=== PATIENT | male | born 1965 | race Caucasian/White ===

== ENCOUNTER → 2019-04-08 | Outpatient (CLI) | payer OTHER ==
[~2019-04-08] MED LIST: CYCLOBENZAPRINE5 MG PO; HYDROCODONE-AP1 EAC6 PO; LIPITOR10 MG PO
== END ==
LOC: RAD 10:47
DX: J98.6 Disorders of diaphragm (principal); Z88.1 Allergy status to other antibiotic agents; Z88.5 Allergy status to narcotic agent; Z88.8 Allergy status to other drugs, medicaments and biological substances

== ENCOUNTER → 2021-04-19 | Outpatient (CLI) | payer OTHER | LOC: RAD 08:01 | PROVIDERS: ATTEND Internal Medicine | DX: R06.00 Dyspnea, unspecified (principal); J98.6 Disorders of diaphragm ==

== ENCOUNTER → 2021-04-22 | Outpatient (CLI) | payer OTHER | LOC: CAT 09:48 | PROVIDERS: ATTEND Internal Medicine | DX: J84.10 Pulmonary fibrosis, unspecified (principal); M25.78 Osteophyte, vertebrae; J98.4 Other disorders of lung ==